=== PATIENT | female | born 1960 | race Caucasian/White ===

== ENCOUNTER 2017-07-26 17:50 | Emergency (ER) | payer MEDICAID ==
[~2017-07-26] VITALS: Ht 162.6 cm; Wt 55.3 kg
[2017-07-26 17:50] VITALS: BP_SYST 110
[2017-07-26] MEDS ORDERED: KETOROLAC TROMETHAMINE 60 MG/2 ML VIAL IM ONE (20:00)
[2017-07-26] MEDS ORDERED: AMOXICILLIN 500 MG CAPSULE PO ONE (20:00)
[2017-07-26 20:28] VITALS: BP_SYST 112
== END 2017-07-26 20:28 | disposition home or self-care (01) ==
LOC: SED 17:50
DX: K04.7 Periapical abscess without sinus (principal)
CPT/HCPCS: 96372; 99283; J1885